=== PATIENT | male | born 1955 | race Caucasian/White ===

== ENCOUNTER 2016-09-03 10:16 | Emergency (ER) | payer MEDICARE ==
[~2016-09-03] VITALS: Ht 193 cm; Wt 182.0 kg
[2016-09-03 10:26] VITALS: BP 151/88; PULSE 93; RESP 20; TEMP 97.7; O2SAT 93
[2016-09-03 10:39] VITALS: BP 151/88; PULSE 93; RESP 20; TEMP 97.7; O2SAT 93
[2016-09-03] MEDS ORDERED: MULT1TAB85 PO (11:02)
[2016-09-03] MEDS ORDERED: LYRI150C PO (11:02)
[2016-09-03] MEDS ORDERED: POTA-245 PO (11:02)
[2016-09-03] MEDS ORDERED: SIMV10TA PO (11:02)
[2016-09-03] MEDS ORDERED: MUPI2CRE3 (11:02)
[2016-09-03] MEDS ORDERED: B12-1CHW CHEW (11:02)
[2016-09-03] MEDS ORDERED: CLON0.1T PO (11:02)
[2016-09-03] MEDS ORDERED: DILT-64 PO (11:02)
[2016-09-03] MEDS ORDERED: LOSA100T2 PO (11:02)
[2016-09-03] MEDS ORDERED: TRAD5TAB PO (11:02)
[2016-09-03] MEDS ORDERED: LEVO25TA4 PO (11:02)
[2016-09-03] MEDS ORDERED: FURO1TAB62 PO (11:02)
[2016-09-03] MEDS ORDERED: FAMO40TA PO (11:02)
[2016-09-03] MEDS ORDERED: GLYB1TAB93 PO (11:02)
[2016-09-03] MEDS ORDERED: VENL75TA PO (11:02)
[2016-09-03] MEDS ORDERED: VENTAER INH (11:02)
[2016-09-03] MEDS ORDERED: TRAZ150T75 PO (11:02)
[2016-09-03] MEDS ORDERED: WARF-21 PO (11:02)
--- NOTE | 2016-09-03 11:19 | PD ---
HPI Chief Complaint: Fall Time Seen by Provider: 11:18 Travel History International Travel<30 days: No Contact w/Intl Traveler<30days: No Traveled to known affect area: No History of Present Illness HPI Patient is a 61-year-old male who presents emergency for evaluation of left lower back pain, bilateral knee pain, bilateral ankle pain. Patient states he was descending stairs yesterday and missed judged the last step missing it and falling. He hit his left lower back on the last step subsequently suffering a bruise to that area. Since that time he's been having difficulty bearing weight. Patient normally uses a cane for balance but upon awakening this morning required EMS services to help him get out of his own bed. He rates his pain as 6/10. He denies any head injury or loss of consciousness. He denies any chest pain or dizziness or shortness of breath prior to the fall. PFSH Past Medical History Hx Anticoagulant Therapy: Yes (WARFARIN) Depression: Yes High Cholesterol: Yes COPD: Yes Diabetes: Yes Patient Takes Glucophage: Yes Diminished Hearing: No GERD: Yes Hypertension: Yes Neurologic: Yes (neuropathy) Sleep Apnea: Yes Thyroid Disease: Yes Tetanus Vaccination: < 5 Years Past Surgical History Tonsillectomy: Yes Other Surgery: Yes (right ankle reconstruction, right knee surgery) Social History Alcohol Use: No Tobacco Use: No Substance Use: No Allergies-Medications (Allergen,Severity, Reaction): Uncoded Allergies: METHYLATE (Allergy, Severe, 09/03/16) Reported Meds & Prescriptions Reported Meds & Active Scripts Active Reported Ventolin Hfa 18 GM Inh (Albuterol Sulfate) 90 Mcg/Act Aer 1 Puff INH Q4H PRN Mupirocin (Mupirocin Calcium (Topical)) 2 % Cre F23-Cwvypf (Methylcobalamin) 1 Mg Chew 1 Mg CHEW DAILY Multivitamin Men (Multiple Vitamins W/ Minerals) 1 Tab Tab 1 Tab PO DAILY Diltiazem CD 24 HR 240 Mg Caper 240 Mg PO DAILY Tradjenta (Linagliptin) 5 Mg Tab 5 Mg PO DAILY Levothyroxine (Levothyroxine Sodium) 25 Mcg Tab 25 Mcg PO DAILY Effexor (Venlafaxine HCl) 75 Mg Tab 75 Mg PO DAILY Lyrica (Pregabalin) 150 Mg Cap 150 Mg PO BID Famotidine 40 Mg Tab 40 Mg PO HS Losartan-Hydrochlorothiazide 100-25 Mg Tab 1 Tab PO DAILY Clonidine (Clonidine HCl) 0.1 Mg Tab 0.1 Mg PO BID Lasix (Furosemide) 20 Mg Tab 20 Mg PO DAILY Glyburide/Metformin HCl (Glyburide/Metformin) 1 Tab Tab 2 PO DAILY Klor-Con M20 (Potassium Chloride Microencaps) 20 Meq Tab 20 Meq PO DAILY Trazodone (Trazodone HCl) 150 Mg Tab 150 Mg PO HS Simvastatin 10 Mg Tab 10 Mg PO DAILY Warfarin 7.5 Mg Tab 7.5 Mg PO DAILY Review of Systems Except as stated in HPI: all other systems reviewed are Neg Musculoskeletal: Positive: Myalgias, Arthralgias, Edema, Pain Skin: Positive Change in Pigmentation Physical Exam Narrative GENERAL: Obese, well-developed, alert elderly gentleman. Resting comfortably in no acute distress. SKIN: Warm and dry. Chronic changes to bilateral lower extremities, dry flaky skin on the bilateral feet. 6 cm area of ecchymosis noted to the left lower back/flank. HEAD: Atraumatic. Normocephalic. EYES: Pupils equal and round. No scleral icterus. No injection or drainage. ENT: No nasal bleeding or discharge. Mucous membranes pink and moist. NECK: Trachea midline. No JVD. CARDIOVASCULAR: Regular rate and rhythm. No murmur appreciated. RESPIRATORY: No accessory muscle use. Clear to auscultation. Breath sounds equal bilaterally. GASTROINTESTINAL: Abdomen soft, non-tender, nondistended. Hepatic and splenic margins not palpable. MUSCULOSKELETAL: No obvious deformities. No clubbing. No cyanosis. 1+ peripheral edema to bilateral lower extremities. Mildly tender to palpation on bilateral anterior knee. NEUROLOGICAL: Awake and alert. No obvious cranial nerve deficits. Motor grossly within normal limits. Normal speech. PSYCHIATRIC: Appropriate mood and affect; insight and judgment normal. Data Data Last Documented VS Vital Signs Date Time Temp Pulse Resp B/P Pulse Ox O2 Delivery O2 Flow Rate FiO2 09/03/16 10:39 97.7 93 20 151/88 93 09/03/16 10:26 Nasal Cannula Orders Knee, Complete (4vws) (09/03/16 ) Knee, Complete (4vws) (09/03/16 ) Ankle, Complete ([id number]) (09/03/16 ) Ankle, Complete ([id number]) (09/03/16 ) Urinalysis - C+S If Indicated (09/03/16 11:14) Prothrombin Time / Inr (Pt) (09/03/16 11:14) Labs Laboratory Tests Test 09/03/16 09/03/16 11:22 11:50 Urine Collection Type CLEAN CATCH Urine Color YELLOW Urine Turbidity CLEAR Urine pH 6.0 Urine Specific [place] 1.021 Urine Protein 30 mg/dL Urine Glucose (UA) NEG mg/dL Urine Ketones TRACE mg/dL Urine Occult Blood TRACE Urine Nitrite NEG Urine Bilirubin NEG Urine Leukocyte Esterase NEG Urine RBC 0-3 /hpf Urine WBC 0-2 /hpf Urine Squamous Epithelial > 8 /hpf Cells Urine Bacteria RARE /hpf Urine Mucus FEW /lpf Microscopic Urinalysis Comment CULT NOT INDICATED Urine Collection Time 11:22 Prothrombin Time 32.2 SEC Prothromb Time International 2.8 RATIO Ratio [facility] Medical Decision Making Medical Screen Exam Complete: Yes Emergency Medical Condition: Yes Interpretation(s) Laboratory Tests Test 09/03/16 09/03/16 11:22 11:50 Urine Collection Type CLEAN CATCH Urine Color YELLOW Urine Turbidity CLEAR Urine pH 6.0 Urine Specific [place] 1.021 Urine Protein 30 mg/dL Urine Glucose (UA) NEG mg/dL Urine Ketones TRACE mg/dL Urine Occult Blood TRACE Urine Nitrite NEG Urine Bilirubin NEG Urine Leukocyte Esterase NEG Urine RBC 0-3 /hpf Urine WBC 0-2 /hpf Urine Squamous Epithelial > 8 /hpf Cells Urine Bacteria RARE /hpf Urine Mucus FEW /lpf Microscopic Urinalysis Comment CULT NOT INDICATED Urine Collection Time 11:22 Prothrombin Time 32.2 SEC Prothromb Time International 2.8 RATIO Ratio Last Impressions Knee X-Ray 09/03/16 0000 Signed Impressions: Service Date/Time: Saturday, September 03, 2016 11:33 - CONCLUSION: 1. Joint effusion is present. No fracture is seen. 2. There is moderate to severe tricompartmental osteoarthritis with medial joint space narrowing. Cuate Miller MD Knee X-Ray 09/03/16 0000 Signed Impressions: Service Date/Time: Saturday, September 03, 2016 11:29 - CONCLUSION: Moderate tricompartmental osteoarthritis. No acute left knee abnormality is identified. Cuate Miller MD Ankle X-Ray 09/03/16 0000 Signed Impressions: Service Date/Time: Saturday, September 03, 2016 11:39 - CONCLUSION: No acute right ankle abnormality is identified. There are is degenerative change at the tibiotalar joint and there has been prior distal fibula ORIF. Cuate Miller MD Ankle X-Ray 09/03/16 0000 Signed Impressions: Service Date/Time: Saturday, September 03, 2016 11:25 - CONCLUSION: Subcutaneous edema is visualized. No acute osseous abnormality is visualized. Cuate Miller MD Vital Signs Date Time Temp Pulse Resp B/P Pulse Ox O2 Delivery O2 Flow Rate FiO2 09/03/16 10:39 97.7 93 20 151/88 93 09/03/16 10:26 97.7 93 20 151/88 93 Nasal Cannula Differential Diagnosis Contusion versus sprain versus strain fracture versus hemorrhage versus other Narrative Course Patient is a 61-year-old male who presents emergency for evaluation of bilateral knee and ankle pain as well as a contusion to his left lower back which he sustained after a mechanical fall yesterday misjudging steps, missing the last 1 and falling. He has a contusion to his left lower back/flank. Imaging ordered and pending. Urinalysis ordered to assess for hematuria, INR will be checked to assess for super therapeutic dosing which would increase patient's risk of bleeding. Urinalysis revealed trace occult blood, nitrite negative. INR was 2.8 and therapeutic. Imaging was essentially negative except for degenerative changes and swelling. Patient was offered a prescription for a walker but declined. He will be given a short course of oral pain medications. Patient was advised to follow-up with his primary doctor upon return home in 1 week to have his urine reevaluated. He was encouraged to alternate heat and ice to affected areas, continue range of motion exercises and avoid bed rest. Findings were discussed with my attending physician Dr. Victoria who was in agreement with treatment plan. Patient is stable for discharge. Diagnosis Primary Impression: Fall Qualified Code: W19.XXXA - Fall, initial encounter Additional Impressions: Ankle pain Qualified Code: M25.571 - Bilateral ankle pain, unspecified chronicity Knee pain Qualified Code: M25.561 - Pain in both knees, unspecified chronicity Contusion Qualified Code: S30.0XXA - Contusion of lower back, initial encounter Hematuria On anticoagulant therapy Referrals: Primary Care Physician 1 week Patient Instructions: Contusion in Adults (ED), Fall Prevention for Older Adults (ED), General Instructions, Hematuria (ED) Additional Instructions: Alternate heat and ice to affected area, continue range of motion exercises, avoid bed rest Do not drive or operate heavy machinery while taking narcotic pain medication Follow-up with your primary doctor upon return home in 1 week to have urine reassessed. Return to emergency department for any new or worsening symptoms Med/Other Pt SpecificInfo: Prescription(s) given Scripts Cyclobenzaprine (Flexeril)5 Mg Tab5 Mg PO BID 5 Days Ref 0 Prov:Alessia Palacios 09/03/16 Tramadol 50 Mg Tab50 Mg PO Q6H PRN (PAIN) #10 TAB Ref 0 Prov:Brandin Victoria MD 09/03/16 Disposition: 01 DISCHARGE HOME Condition: Stable Alessia Palacios Sep 03, 2016 11:19
[2016-09-03 11:26] LABS: BLOOD, URINE TRACE (NEG); GLUCOSE,URINE NEG (NEG); KETONE, URINE TRACE mg/dL (NEG); NITRITE,URINE NEG (NEG)
[2016-09-03 11:29] LABS: METHOD OF COLLECTION CLEAN CATCH; URINE COLOR YELLOW (YELLW/STRAW)
[2016-09-03 11:30] LABS: MUCUS URINE FEW /lpf (OCC); WBC, URINE 0-2 /hpf (0-5)
[2016-09-03 11:31] LABS: BACTERIA, URINE RARE /hpf; COMMENT (UR) CULT NOT INDICATED; CULTURE IF INDICATED CULT NOT INDICATED; RBC, URINE 0-3 /hpf (0-3); SQUAMOUS EPITHELIAL CELL URINE > 8 /hpf (0-5)
--- NOTE | 2016-09-03 12:03 | RADHPO ---
EXAM DATE/TIME: 09/03/2016 11:25 [facility] COMPARISON: No previous studies available for comparison. INDICATIONS : Fell, left ankle pain MEDICAL HISTORY : Diabetes mellitus type II. SURGICAL HISTORY : right ankle, knee ENCOUNTER: Initial ACUITY: 2 days PAIN SCORE: 8/10 LOCATION: Left ankle FINDINGS: 3 views of the left ankle demonstrate no fracture or dislocation. Mineralization is within normal ballard its. There are degenerative changes at the tibiotalar joint and the midfoot. No radiopaque foreign tanja dy is seen. There is subcutaneous edema bilaterally. CONCLUSION: Subcutaneous edema is visualized. No acute osseous abnormality is visualized. Cuate Miller MD on September 03, 2016 at 12:00 Board Certified Radiologist. This report was verified electronically.
--- NOTE | 2016-09-03 12:04 | RADHPO ---
EXAM DATE/TIME: 09/03/2016 11:29 [facility] COMPARISON: No previous studies available for comparison. INDICATIONS : Fell, left knee pain MEDICAL HISTORY : Diabetes mellitus type II. SURGICAL HISTORY : right knee, ankle ENCOUNTER: Initial ACUITY: 2 days PAIN SCORE: 8/10 LOCATION: Left knee FINDINGS: 4 views of the left knee demonstrate no fracture or dislocation. Mineralization is within normal limi ts. There are tricompartmental osteophytes present. No joint effusion is visualized. No soft tissue a bnormality or radiopaque foreign body is identified. CONCLUSION: Moderate tricompartmental osteoarthritis. No acute left knee abnormality is identified. Cuate Milelr MD on September 03, 2016 at 12:01 Board Certified Radiologist. This report was verified electronically.
--- NOTE | 2016-09-03 12:05 | RADHPO ---
EXAM DATE/TIME: 09/03/2016 11:33 [facility] COMPARISON: No previous studies available for comparison. INDICATIONS : Fell, right knee pain MEDICAL HISTORY : Diabetes mellitus type II. SURGICAL HISTORY : right knee, ankle ENCOUNTER: Initial ACUITY: 2 days PAIN SCORE: 8/10 LOCATION: Right knee FINDINGS: 4 views of the right knee demonstrate no fracture or dislocation. There are tricompartmental osteophy elpidio with severe medial joint space narrowing. Joint effusion is suspected. No soft tissue abnormality or radiopaque foreign body is identified. CONCLUSION: 1. Joint effusion is present. No fracture is seen. 2. There is moderate to severe tricompartmental osteoarthritis with medial joint space narrowing. Cuate Miller MD on September 03, 2016 at 12:02 Board Certified Radiologist. This report was verified electronically.
--- NOTE | 2016-09-03 12:06 | RADHPO ---
EXAM DATE/TIME: 09/03/2016 11:39 [facility] COMPARISON: No previous studies available for comparison. INDICATIONS : Fell, right ankle pain MEDICAL HISTORY : Diabetes mellitus type II. SURGICAL HISTORY : right knee, ankle ENCOUNTER: Initial ACUITY: 2 days PAIN SCORE: 8/10 LOCATION: Right ankle FINDINGS: 3 views of the right ankle demonstrate no acute fracture or dislocation. The ankle mortise is intact. A lateral fibular sideplate is present with 6 interlocking screws and a single lag screw. There are no findings to indicate hardware failure or loosening. There are severe degenerative changes of the t ibiotalar joint with prominent osteophyte at the posterior talus. There also degenerative changes thr oughout the midfoot. Mild subcutaneous edema is present in the distal leg. CONCLUSION: No acute right ankle abnormality is identified. There are is degenerative change at the tibiotalar jacqueline int and there has been prior distal fibula ORIF. Cuate Miller MD on September 03, 2016 at 12:03 Board Certified Radiologist. This report was verified electronically.
[2016-09-03 12:10] LABS: INTERNATIONAL NORMALIZED RATIO 2.8 RATIO; PROTHROMBIN TIME - PATIENT 32.2 SEC (9.8-11.6)
[2016-09-03] MEDS ORDERED: TRAM50TA PO (12:24)
[2016-09-03] MEDS ORDERED: CYCL5TAB PO (12:30)
== END 2016-09-03 12:48 | disposition home or self-care (01) ==
LOC: PHEFT 10:16
DX: S30.0XXA Contusion of lower back and pelvis, initial encounter (principal); M25.572 Pain in left ankle and joints of left foot; M25.571 Pain in right ankle and joints of right foot; M25.562 Pain in left knee; M25.561 Pain in right knee; E78.00 Pure hypercholesterolemia, unspecified; E11.9 Type 2 diabetes mellitus without complications; I10 Essential (primary) hypertension; G47.30 Sleep apnea, unspecified; E07.9 Disorder of thyroid, unspecified; Z79.84 Long term (current) use of oral hypoglycemic drugs; Z79.01 Long term (current) use of anticoagulants; W10.8XXA Fall (on) (from) other stairs and steps, initial encounter
CPT/HCPCS: 73564; 73610; 81001; 85610; 99284